=== PATIENT | male | born 1945 | race Caucasian/White ===

== ENCOUNTER 2018-06-16 14:53 | Inpatient (IN) ==
[2018-06-17] MEDS ORDERED: Artificial Tears SOLN 15 ML BOTTLE BOTH EYES PRN (14:23)
[2018-06-17] MEDS ORDERED: NON-FORMULARY MEDICATION 1 EACH EACH (Carboxymethylcellulose Sodium [Refresh Tears] 1 DROP BOTH EYES PRN (14:23)
[2018-06-17] MEDS ORDERED: Ondansetron 4 MG/2 ML VIAL IVP PRN (14:23)
[2018-06-17] MEDS ORDERED: Acetylcysteine 10% 2 ML INHSOL IH SCH (15:00)
[2018-06-17] MEDS: Gabapentin 300 MG CAPSULE PO SCH ×2 (16:02→17:33)
[2018-06-17] MEDS: Ipratropium/Albuterol Neb 3 ML IH SCH ×2 (16:07→23:03)
[2018-06-17] MEDS: Pirfenidone [Esbriet] 801 MG PO SCH ×2 (17:11→21:07)
[2018-06-17] MEDS: *HR* OxyCODONE/APAP 5/325 TABLET PO PRN (17:33)
[2018-06-17] MEDS: Methocarbamol 500 MG TABLET PO SCH (17:33)
[2018-06-17] MEDS: Gabapentin 400 MG CAPSULE PO SCH (20:25)
[2018-06-17] MEDS ORDERED: Sodium Chloride for inhalation 3 ML VIAL IH SCH (23:00)
[2018-06-18] MEDS: Methocarbamol 500 MG TABLET PO SCH ×3 (00:30→15:43)
[2018-06-18 06:40] LABS: Basophils % 0.4 %; Eosinophils # 0.4 K/mcL (0.0-0.6); Eosinophils % 3.9 %; Hematocrit 30.6 % (37.5-50.1); Hemoglobin 9.6 g/dL (12.9-16.9); Immature Granulocytes % 1.9 % (0-4); Lymphocytes % 10.9 %; Mean Corpuscular HGB Conc 31.4 g/dL (31.6-35.5); Mean Corpuscular Hemoglobin 29.9 pg (28.0-33.3); Mean Corpuscular Volume 95.3 fL (83.0-100.0); Mean Platelet Volume 8.4 fL (9.4-12.4); Monocytes # 1.4 K/mcL (0.0-1.3); Monocytes % 14.7 %; Neutrophils # 6.4 K/mcL (1.6-8.9); Platelet Count 474 K/mcL (140-400); Red Blood Count 3.21 M/mcL (4.19-5.50); Red Cell Distribution Width 18.1 % (11.5-14.5); Segmented Neutrophils % 68.2 %
[2018-06-18 06:58] LABS: Phosphorous 3.6 mg/dL (2.7-4.5)
[2018-06-18 07:02] LABS: BUN/Creatinine Ratio 15 (6-26); Blood Urea Nitrogen 9 mg/dL (8-23); Carbon Dioxide 28 mEq/L (23-29); Chloride 92 mEq/L (98-107); Glucose 97 mg/dL (70-105); Osmolality,Calculated 269 (280-300); Potassium 3.4 mEq/L (3.5-5.1); Sodium 130 mEq/L (136-145); eGFR For Non-African Americans > 60 (> 60)
[2018-06-18] MEDS: Ipratropium/Albuterol Neb 3 ML IH SCH ×3 (07:49→23:24)
[2018-06-18 08:46] LABS: Thyroid Stimulating Hormone 7.69 mcIU/mL (0.340-5.600)
[2018-06-18] MEDS: Venlafaxine XR (24 HR) 150 MG CAP.ER.24H PO SCH (09:32)
[2018-06-18] MEDS: Multivit/Ca/Min/Fe/FA 1 TAB TABLET PO SCH (09:32)
[2018-06-18] MEDS: Gabapentin 300 MG CAPSULE PO SCH ×2 (09:32→15:44)
[2018-06-18] MEDS: amLODIPine 5 MG TABLET PO SCH (09:32)
[2018-06-18] MEDS: Fluticasone Propionate Nasal 50 MCG/SPRAY BOTTLE NS SCH (09:40)
[2018-06-18] MEDS: Pirfenidone [Esbriet] 801 MG PO SCH ×3 (09:41→20:44)
[2018-06-18 10:11] LABS: Folate 15.4 ng/mL (3.0-16.0)
--- NOTE | 2018-06-18 17:04 | Internal Med History&Physical ---
Date of Encounter: 06/18/18 Time of Encounter: 15:55 Assessment and Plan (1) S/P right colectomy Current visit: No Status: Acute Continue wound VAC. Follow-up surgical appointment in approximately 2 weeks. (2) Idiopathic pulmonary fibrosis Current visit: No Status: Chronic Esbriet is being held until pulmonology follow-up. N-Acetylcysteine will be continued for treatment. (3) Hypothyroidism Current visit: Yes Status: Acute TSH elevated at 7.690 today. Synthroid will be started. Qualifiers: Hypothyroidism type: unspecified Qualified Code(s): E03.9 - Hypothyroidism, unspecified (4) Anemia Current visit: No Status: Acute Anemia testing is a showed iron 27, transferrin saturation 9%, transferrin 209, B12 1044, and folate 15.4. Iron sucrose will be given. Qualifiers: Anemia type: other cause Other causes of anemia: acute posthemorrhagic Qualified Code(s): D62 - Acute posthemorrhagic anemia (5) Hypokalemia Current visit: Yes Status: Acute Potassium decreased to 3.4 today. Supplemental potassium will be ordered. Internal Medicine - H&P: HPI Chief complaint: Abdominal surgery Admitted From: Hospital to Hospital Transfer Plans for Post Hospital Care: Home History of present illness: Mr. Degroot is a 73 year old male who was hospitalized at [facility] May 19-June 17 after presenting to [facility] ER with perforated cecum. He underwent exploratory laparotomy with right segmental colectomy and primary ileocolonic anastomosis 05/19/2018. He had CT-guided percutaneous drainage of 2 abdominal abscesses by IR on 05/26/2018. On 05/29/2018 he had EGD with exploratory laparotomy and abdominal washout for abnormal CT scan indicating possible abdominal abscess/anastomotic leak. On 06/06/2018 he had mesenteric angiography with embolization of GDA via inferior pancreaticoduodenal artery. He remained stable following this intervention. He was transferred to [facility] swing bed for ongoing care needs. He had open appendectomy remotely. Wound VAC remains in place as well as a right-sided abdominal drain. He denies previous disorders of liver gallbladder or exocrine pancreas. Past Med Surg Social Fam HX - Past Medical History Medical history: hyperlipidemia, hypertension, other Additional medical history: skull fracture from fall in 2013. Psychiatric history: no psych history - Past Surgical History Surgical History: appendectomy, cataract, tonsilectomy, other Additional surgical history: unknown - Social History Smoking Status: Former smoker Smokeless Tobacco Status: No Alcohol use: none Drug use: none Internal Medicine - H&P: Meds Amlodipine Besylate 10 mg PO DAILY 05/20/18 [History] Atorvastatin [Lipitor] 40 mg PO HS 05/20/18 [History] C,E,Zinc,Copper 11/Lnigy8w/Lut [Ocuvite Adult 50 Plus Softgel] 1 cap PO DAILY 05/20/18 [History] Carboxymethylcellulose Sodium [Refresh Tears] 1 drop BOTH EYES QID PRN 05/20/18 [History] Chlorthalidone 25 mg PO DAILY 05/20/18 [History] Fluticasone Propionate Nasal [Flonase] 2 spr NS DAILY 05/20/18 [History] Gabapentin [Neurontin] 1,200 mg PO HS 05/20/18 [History] Gabapentin [Neurontin] 600 mg PO BID 05/20/18 [History] Montelukast [Singulair] 10 mg PO HS 05/20/18 [History] Pirfenidone [Esbriet] 2,403 mg PO TID 05/20/18 [History] Venlafaxine XR (24 HR) [Effexor XR] 150 mg PO DAILY 05/20/18 [History] Acetylcysteine 10% 2 ml IH [id number] inhsol 06/16/18 [Rx] Artificial Tears SOLN [Akwa Tears] 1 drop BOTH EYES QID PRN bottle 06/16/18 [Rx] Docusate [Colace] 100 mg PO BID capsule 06/16/18 [Rx] Heparin 5,000 unit SQ Q12HCO vial 06/16/18 [Rx] Ipratropium/Albuterol Neb [Duoneb] 3 ml IH [id number] inhsol 06/16/18 [Rx] Methocarbamol [Robaxin] 750 mg PO Q8HR tablet 06/16/18 [Rx] Omeprazole [PriLOSEC] 40 mg PO BIDAC capsule. 06/16/18 [Rx] Ondansetron [Zofran] 4 mg IVP Q6HR PRN vial 06/16/18 [Rx] OxyCODONE/APAP 5/325 [Percocet 5/325 MG] 1 each PO Q6HR PRN 7 Days tablet 06/16/18 [Rx] Potassium Chloride 20 meq PO BID tab.er.prt 06/16/18 [Rx] Sucralfate [Carafate] 1 gm PO QIDAC udc 06/16/18 [Rx] Allergy/AdvReac Type Severity Reaction Status Date / Time lansoprazole [From Prevacid] AdvReac Diarrhea Verified 05/20/18 16:56 All Systems PM: A 10-system review of systems was performed and is negative for pertinent findings except as documented above in the HPI. Review of systems: Gen.: He states his weight has been stable for several years Cardiovascular: He has history of hypertension but no known TX heart failure angina DVT or pulmonary embolus. Regadenoson EST 04/29/2016 showed no EKG or perfusion evidence of ischemia. Echocardiogram 04/29/2016 showed LVEF of 60%. The interventricular septum and posterior wall thickness measurements were 0.70 and 1.00 cm respectively. The E/A ratio was 1. No significant valvular abnormalities were seen. No evidence of pulmonary hypertension was reported without estimated RVSP recorded. Respiratory: He smoked from age [age] up to 2 packs per day. PFTs 08/20/2017 showed FVC 81% predicted, FEV1 87% predicted, FEV1/FVC 79%, MVV 46% predicted, RV 149% predicted, and DLCO (uncorrected) 62% predicted. There was minimal change in FVC and FEV1 postbronchodilator. Flow volume loop was normal. He was given a diagnosis of idiopathic pulmonary fibrosis in 2014. GI: As per history of present illness : He denies hematuria dysuria or kidney stones Neurologic: He denies large discussion strokes or seizures. Endocrine: He has hyperlipidemia but denies diabetes or thyroid disease Hematology/oncology: He denies blood disorders or internal malignancies. He r eceived 13 units of packed red cells, 2 units of plasma, and Venofer total 1.8 g during his recent [facility] stay. Psychiatric: He has anxiety and depression. [place] skeletal: He had a fall on ice May 2012 resulting in a closed skull fracture. He was treated nonoperatively without sequelae. He has degenerative disc disease in his low back with chronic leg pain. He denies gout or other bone joint or muscle disorders. - Constitutional Vitals: Temp Pulse Resp BP Pulse Ox 98.4 F 86 14 135/77 95 06/18/18 07:06 06/18/18 07:06 06/18/18 07:49 06/18/18 07:06 06/18/18 10:11 Exam: Gen.: He is a well-developed well-nourished male resting comfortably in bed who appears in no acute distress HEENT: Head is atraumatic and normocephalic. Eyes: EOMI. There is no scleral icterus. Mouth: Mucosa is moist. Neck: Supple and nontender. There is no thyromegaly or adenopathy noted. Heart: Regular with bigeminal rhythm. No murmurs or gallops are heard. Lungs: No wheezes or crackles are heard. Abdomen: A wound VAC with black foam is in place in the midline abdominal area. A drainage tube with bulb suction is in place in the right abdominal area. No masses or guarding are noted. Extremities: There is no cyanosis edema or clubbing noted. Dorsalis pedis and posterior tibial pulses are 1-2 over 2 bilaterally. Neurologic: Mental status: He is talkative and a good historian. Cranial nerves: Smile is symmetric. Forehead wrinkles bilaterally. Tongue protrudes midline. EOMI. Motor: There is no pronator drift. Cerebellar: Finger to nose is intact bilaterally. Skin: Warm and dry Internal Med - H&P Results - Labs CBC & Chem 7: 06/18/18 06:08 06/18/18 06:08 Labs: Short CBC 06/18/18 Range/Units 06:08 WBC 9.4 (4.3-11.1) K/mcL Hgb 9.6 L (12.9-16.9) g/dL Hct 30.6 L (37.5-50.1) % Plt Count 474 H (140-400) K/mcL Neutrophils # 6.4 (1.6-8.9) K/mcL BMP 06/18/18 06:08 Sodium 130 L Potassium 3.4 L Chloride 92 L Carbon Dioxide 28 BUN 9 Creatinine 0.59 L Glucose 97 Calcium 9.0
[2018-06-18] MEDS ORDERED: Iron Sucrose Complex 400 MG in 0.9 % Sodium Chloride 250 ML IVPB ONE (17:28)
[2018-06-18] MEDS: Methyl Salicylate/Menthol 28 GM TUBE TP SCH (18:03)
[2018-06-18] MEDS: Gabapentin 400 MG CAPSULE PO SCH (20:44)
[2018-06-19] MEDS: Methocarbamol 500 MG TABLET PO SCH ×4 (00:03→23:20)
[2018-06-19] MEDS: Ipratropium/Albuterol Neb 3 ML IH SCH ×3 (07:52→23:38)
[2018-06-19] MEDS: Methyl Salicylate/Menthol 28 GM TUBE TP SCH (08:08)
[2018-06-19] MEDS: Fluticasone Propionate Nasal 50 MCG/SPRAY BOTTLE NS SCH (08:09)
[2018-06-19] MEDS: Pirfenidone [Esbriet] 801 MG PO SCH ×3 (08:10→20:30)
[2018-06-19] MEDS: Gabapentin 300 MG CAPSULE PO SCH ×2 (08:10→15:41)
[2018-06-19] MEDS: Multivit/Ca/Min/Fe/FA 1 TAB TABLET PO SCH (08:10)
[2018-06-19] MEDS: amLODIPine 5 MG TABLET PO SCH (08:10)
[2018-06-19] MEDS ORDERED: Acetylcysteine 10% 2 ML INHSOL IH SCH (10:00)
[2018-06-19] MEDS: Venlafaxine XR (24 HR) 150 MG CAP.ER.24H PO SCH (11:05)
--- NOTE | 2018-06-19 15:55 | Internal Med Progress Note ---
Date of Encounter: 06/19/18 Time of Encounter: 15:48 - Assessment and plan (1) S/P right colectomy Current Visit: No Status: Acute Assessment and plan: June 19. Continue wound VAC and surgical follow-up as scheduled (2) Idiopathic pulmonary fibrosis Current Visit: No Status: Chronic Assessment and plan: June 19. Esbriet is being held until pulmonology follow-up. N-Acetylcysteine will be continued for treatment. (3) Hypothyroidism Current Visit: Yes Status: Acute Assessment and plan: June 19. Continue Synthroid Qualifiers: Hypothyroidism type: unspecified Qualified Code(s): E03.9 - Hypothyroidism, unspecified (4) Anemia Current Visit: No Status: Acute Assessment and plan: June 19. Iron sucrose was given yesterday. Monitor CBC. Qualifiers: Anemia type: other cause Other causes of anemia: acute posthemorrhagic Qualified Code(s): D62 - Acute posthemorrhagic anemia (5) Hypokalemia Current Visit: Yes Status: Acute Assessment and plan: June 19. Recheck labs in a.m. - Subjective Interval history: June 19. He has no new complaints. - Constitutional Vitals: Temp Pulse Resp BP Pulse Ox 98.3 F 86 16 127/68 96 06/19/18 06:17 06/19/18 06:17 06/19/18 07:52 06/19/18 06:17 06/19/18 07:52 Exam: He is resting comfortably in bed and appears in no acute distress. His affect is bright and cheerful. I reviewed his medications and lab results. Internal Medicine: Result - Labs CBC & Chem 7: 06/18/18 06:08 06/18/18 06:08 Consult Discharge Plan - Plan Referrals: Yesenia Millan MD [Primary Care Provider] - 1 week
[2018-06-19] MEDS: Acetylcysteine 10% 2 ML INHSOL IH SCH (16:14)
[2018-06-19] MEDS: Sodium Chloride for inhalation 3 ML VIAL IH SCH ×2 (16:17→23:50)
[2018-06-19] MEDS: Gabapentin 400 MG CAPSULE PO SCH (20:29)
[2018-06-20 07:11] LABS: Basophils % 0.4 %; Eosinophils # 0.4 K/mcL (0.0-0.6); Eosinophils % 3.9 %; Hematocrit 27.2 % (37.5-50.1); Hemoglobin 8.7 g/dL (12.9-16.9); Immature Granulocytes % 0.8 % (0-4); Lymphocytes # 1.2 K/mcL (0.6-4.6); Lymphocytes % 12.8 %; Mean Corpuscular Hemoglobin 29.7 pg (28.0-33.3); Mean Corpuscular Volume 92.8 fL (83.0-100.0); Mean Platelet Volume 8.5 fL (9.4-12.4); Monocytes # 1.4 K/mcL (0.0-1.3); Monocytes % 16.1 %; Neutrophils # 5.9 K/mcL (1.6-8.9); Platelet Count 415 K/mcL (140-400); Red Blood Count 2.93 M/mcL (4.19-5.50); Red Cell Distribution Width 17.1 % (11.5-14.5)
[2018-06-20 07:27] LABS: BUN/Creatinine Ratio 13 (6-26); Blood Urea Nitrogen 8 mg/dL (8-23); Calcium 8.6 mg/dL (8.6-10.3); Carbon Dioxide 30 mEq/L (23-29); Chloride 93 mEq/L (98-107); Glucose 94 mg/dL (70-105); Osmolality,Calculated 274 (280-300); Potassium 3.1 mEq/L (3.5-5.1); Sodium 133 mEq/L (136-145); eGFR For Non-African Americans > 60 (> 60)
[2018-06-20] MEDS: Methocarbamol 500 MG TABLET PO SCH ×2 (08:26→15:53)
[2018-06-20] MEDS: Venlafaxine XR (24 HR) 150 MG CAP.ER.24H PO SCH (08:26)
[2018-06-20] MEDS: amLODIPine 5 MG TABLET PO SCH (08:27)
[2018-06-20] MEDS: Gabapentin 300 MG CAPSULE PO SCH ×2 (08:27→15:53)
[2018-06-20] MEDS: Fluticasone Propionate Nasal 50 MCG/SPRAY BOTTLE NS SCH (08:27)
[2018-06-20] MEDS: Multivit/Ca/Min/Fe/FA 1 TAB TABLET PO SCH (08:27)
[2018-06-20] MEDS: Methyl Salicylate/Menthol 28 GM TUBE TP SCH (08:28)
[2018-06-20] MEDS: Pirfenidone [Esbriet] 801 MG PO SCH ×3 (08:29→17:16)
[2018-06-20] MEDS: Acetylcysteine 10% 2 ML INHSOL IH SCH ×5 (09:16→22:39)
[2018-06-20] MEDS: Ipratropium/Albuterol Neb 3 ML IH SCH ×3 (09:16→22:39)
[2018-06-20] MEDS: Sodium Chloride for inhalation 3 ML VIAL IH SCH (09:16)
[2018-06-20] MEDS: Gabapentin 400 MG CAPSULE PO SCH (21:19)
[2018-06-21] MEDS: Methocarbamol 500 MG TABLET PO SCH ×3 (00:31→16:15)
[2018-06-21 06:54] LABS: Basophils % 0.4 %; Eosinophils # 0.2 K/mcL (0.0-0.6); Eosinophils % 2.3 %; Hematocrit 27.2 % (37.5-50.1); Hemoglobin 8.6 g/dL (12.9-16.9); Immature Granulocytes % 0.8 % (0-4); Lymphocytes # 1.1 K/mcL (0.6-4.6); Lymphocytes % 12.1 %; Mean Corpuscular HGB Conc 31.6 g/dL (31.6-35.5); Mean Corpuscular Hemoglobin 29.6 pg (28.0-33.3); Mean Corpuscular Volume 93.5 fL (83.0-100.0); Mean Platelet Volume 8.4 fL (9.4-12.4); Monocytes # 1.3 K/mcL (0.0-1.3); Monocytes % 14.4 %; Neutrophils # 6.3 K/mcL (1.6-8.9); Platelet Count 404 K/mcL (140-400); Red Blood Count 2.91 M/mcL (4.19-5.50); Red Cell Distribution Width 17.1 % (11.5-14.5)
[2018-06-21 07:19] LABS: BUN/Creatinine Ratio 15 (6-26); Blood Urea Nitrogen 8 mg/dL (8-23); Calcium 8.5 mg/dL (8.6-10.3); Carbon Dioxide 28 mEq/L (23-29); Chloride 95 mEq/L (98-107); Glucose 100 mg/dL (70-105); Magnesium 1.8 mg/dL (1.6-2.6); Osmolality,Calculated 272 (280-300); Potassium 3.4 mEq/L (3.5-5.1); Sodium 132 mEq/L (136-145); eGFR For Non-African Americans > 60 (> 60)
[2018-06-21] MEDS: Ipratropium/Albuterol Neb 3 ML IH SCH ×3 (08:38→22:54)
[2018-06-21] MEDS: Pirfenidone [Esbriet] 801 MG PO SCH ×3 (08:38→17:17)
[2018-06-21] MEDS: Venlafaxine XR (24 HR) 150 MG CAP.ER.24H PO SCH (08:39)
[2018-06-21] MEDS: Multivit/Ca/Min/Fe/FA 1 TAB TABLET PO SCH (08:39)
[2018-06-21] MEDS: amLODIPine 5 MG TABLET PO SCH (08:39)
[2018-06-21] MEDS: Gabapentin 300 MG CAPSULE PO SCH ×2 (08:39→16:15)
[2018-06-21] MEDS: Methyl Salicylate/Menthol 28 GM TUBE TP SCH (08:40)
[2018-06-21] MEDS: Fluticasone Propionate Nasal 50 MCG/SPRAY BOTTLE NS SCH (08:40)
[2018-06-21] MEDS: Acetylcysteine 10% 2 ML INHSOL IH SCH ×3 (08:41→22:54)
[2018-06-21] MEDS: Gabapentin 400 MG CAPSULE PO SCH (20:51)
[2018-06-22] MEDS: Methocarbamol 500 MG TABLET PO SCH ×4 (00:56→22:59)
[2018-06-22] MEDS: Acetylcysteine 10% 2 ML INHSOL IH SCH (07:48)
[2018-06-22] MEDS: Ipratropium/Albuterol Neb 3 ML IH SCH ×3 (07:48→22:25)
[2018-06-22] MEDS: amLODIPine 5 MG TABLET PO SCH (08:31)
[2018-06-22] MEDS: Multivit/Ca/Min/Fe/FA 1 TAB TABLET PO SCH (08:31)
[2018-06-22] MEDS: Gabapentin 300 MG CAPSULE PO SCH ×2 (08:31→15:57)
[2018-06-22] MEDS: Venlafaxine XR (24 HR) 150 MG CAP.ER.24H PO SCH (08:31)
[2018-06-22] MEDS: Pirfenidone [Esbriet] 801 MG PO SCH ×3 (08:32→16:56)
[2018-06-22] MEDS: Fluticasone Propionate Nasal 50 MCG/SPRAY BOTTLE NS SCH (08:32)
[2018-06-22] MEDS: Methyl Salicylate/Menthol 28 GM TUBE TP SCH (08:36)
[2018-06-22] MEDS: Acetylcysteine 10% 10 ML VIAL IH SCH ×2 (16:13→22:25)
--- NOTE | 2018-06-22 18:04 | Internal Med Progress Note ---
Date of Encounter: 06/22/18 Time of Encounter: 17:55 - Assessment and plan (1) S/P right colectomy Current Visit: No Status: Acute Assessment and plan: June 19. Continue wound VAC and surgical follow-up as scheduled (2) Idiopathic pulmonary fibrosis Current Visit: No Status: Chronic Assessment and plan: June 19. Esbriet is being held until pulmonology follow-up. N-Acetylcysteine will be continued for treatment. (3) Hypothyroidism Current Visit: Yes Status: Acute Assessment and plan: June 19. Continue Synthroid Qualifiers: Hypothyroidism type: unspecified Qualified Code(s): E03.9 - Hypothyroidism, unspecified (4) Anemia Current Visit: No Status: Acute Assessment and plan: June 19. Iron sucrose was given yesterday. Monitor CBC. Qualifiers: Anemia type: other cause Other causes of anemia: acute posthemorrhagic Qualified Code(s): D62 - Acute posthemorrhagic anemia (5) Hypokalemia Current Visit: Yes Status: Acute Assessment and plan: June 19. Recheck labs in a.m. June 22. Recheck labs in a.m. - Subjective Interval history: June 19. He has no new complaints. June 22. He has no new complaints. He states he wants to go home as soon as possible. - Constitutional Vitals: Temp Pulse Resp BP Pulse Ox 98.0 F 73 12 127/69 96 06/22/18 08:16 06/22/18 08:16 06/22/18 16:13 06/22/18 08:16 06/22/18 16:13 Exam: He is resting comfortably in bed and appears in no acute distress. His affect is bright and cheerful. I observed the nurse changing the dressing on his abdominal wound. I reviewed his medications and lab results. Internal Medicine: Result - Labs CBC & Chem 7: 06/21/18 05:55 06/21/18 05:55 Consult Discharge Plan - Plan Referrals: Yesenia Millan MD [Primary Care Provider] - 1 week
[2018-06-22] MEDS: Gabapentin 400 MG CAPSULE PO SCH (21:31)
[2018-06-23 05:34] LABS: Basophils % 0.5 %; Eosinophils # 0.3 K/mcL (0.0-0.6); Eosinophils % 3.2 %; Hematocrit 27.5 % (37.5-50.1); Hemoglobin 8.7 g/dL (12.9-16.9); Immature Granulocytes % 0.6 % (0-4); Lymphocytes % 13.4 %; Mean Corpuscular HGB Conc 31.6 g/dL (31.6-35.5); Mean Corpuscular Hemoglobin 29.8 pg (28.0-33.3); Mean Corpuscular Volume 94.2 fL (83.0-100.0); Mean Platelet Volume 8.4 fL (9.4-12.4); Monocytes # 1.2 K/mcL (0.0-1.3); Monocytes % 15.1 %; Neutrophils # 5.2 K/mcL (1.6-8.9); Platelet Count 355 K/mcL (140-400); Red Blood Count 2.92 M/mcL (4.19-5.50); Red Cell Distribution Width 16.7 % (11.5-14.5); Segmented Neutrophils % 67.2 %
[2018-06-23 05:57] LABS: BUN/Creatinine Ratio 16 (6-26); Blood Urea Nitrogen 8 mg/dL (8-23); Calcium 8.6 mg/dL (8.6-10.3); Carbon Dioxide 28 mEq/L (23-29); Chloride 96 mEq/L (98-107); Glucose 96 mg/dL (70-105); Osmolality,Calculated 270 (280-300); Potassium 3.5 mEq/L (3.5-5.1); Sodium 131 mEq/L (136-145); eGFR For Non-African Americans > 60 (> 60)
[2018-06-23] MEDS: Multivit/Ca/Min/Fe/FA 1 TAB TABLET PO SCH (08:17)
[2018-06-23] MEDS: Venlafaxine XR (24 HR) 150 MG CAP.ER.24H PO SCH (08:17)
[2018-06-23] MEDS: amLODIPine 5 MG TABLET PO SCH (08:18)
[2018-06-23] MEDS: Methocarbamol 500 MG TABLET PO SCH ×2 (08:18→15:58)
[2018-06-23] MEDS: Gabapentin 300 MG CAPSULE PO SCH ×2 (08:18→15:58)
[2018-06-23] MEDS: Methyl Salicylate/Menthol 28 GM TUBE TP SCH (08:18)
[2018-06-23] MEDS: Pirfenidone [Esbriet] 801 MG PO SCH ×4 (08:19→17:17)
[2018-06-23] MEDS: Fluticasone Propionate Nasal 50 MCG/SPRAY BOTTLE NS SCH (08:19)
[2018-06-23] MEDS: Ipratropium/Albuterol Neb 3 ML IH SCH ×3 (08:46→23:20)
[2018-06-23] MEDS: Acetylcysteine 10% 10 ML VIAL IH SCH ×3 (08:47→23:20)
[2018-06-23] MEDS: *HR* OxyCODONE/APAP 5/325 TABLET PO PRN (21:28)
[2018-06-23] MEDS: Gabapentin 400 MG CAPSULE PO SCH (21:28)
[2018-06-24] MEDS: Methocarbamol 500 MG TABLET PO SCH ×4 (00:24→23:46)
[2018-06-24] MEDS: Ipratropium/Albuterol Neb 3 ML IH SCH ×3 (07:38→21:57)
[2018-06-24] MEDS: Acetylcysteine 10% 10 ML VIAL IH SCH ×3 (07:38→21:57)
[2018-06-24] MEDS: Multivit/Ca/Min/Fe/FA 1 TAB TABLET PO SCH (07:46)
[2018-06-24] MEDS: Gabapentin 300 MG CAPSULE PO SCH ×2 (07:46→17:50)
[2018-06-24] MEDS: Venlafaxine XR (24 HR) 150 MG CAP.ER.24H PO SCH (07:46)
[2018-06-24] MEDS: amLODIPine 5 MG TABLET PO SCH (07:46)
[2018-06-24] MEDS: Fluticasone Propionate Nasal 50 MCG/SPRAY BOTTLE NS SCH (07:47)
[2018-06-24] MEDS: Pirfenidone [Esbriet] 801 MG PO SCH ×3 (07:47→17:50)
[2018-06-24] MEDS: Methyl Salicylate/Menthol 28 GM TUBE TP SCH (07:47)
[2018-06-24] MEDS: Gabapentin 400 MG CAPSULE PO SCH (21:31)
[2018-06-24] MEDS: *HR* OxyCODONE/APAP 5/325 TABLET PO PRN (21:34)
[2018-06-24] MEDS ORDERED: Methocarbamol 500 MG TABLET PO ONE (23:45)
[2018-06-25 06:42] LABS: Basophils # 0.1 K/mcL (0.0-0.2); Basophils % 0.8 %; Eosinophils # 0.3 K/mcL (0.0-0.6); Eosinophils % 4.8 %; Hematocrit 29.2 % (37.5-50.1); Hemoglobin 9.1 g/dL (12.9-16.9); Immature Granulocytes % 0.6 % (0-4); Lymphocytes # 1.1 K/mcL (0.6-4.6); Lymphocytes % 17.6 %; Mean Corpuscular HGB Conc 31.2 g/dL (31.6-35.5); Mean Corpuscular Hemoglobin 29.9 pg (28.0-33.3); Mean Corpuscular Volume 96.1 fL (83.0-100.0); Mean Platelet Volume 8.5 fL (9.4-12.4); Monocytes % 15.4 %; Neutrophils # 3.8 K/mcL (1.6-8.9); Platelet Count 363 K/mcL (140-400); Red Blood Count 3.04 M/mcL (4.19-5.50); Red Cell Distribution Width 16.5 % (11.5-14.5); Segmented Neutrophils % 60.8 %
[2018-06-25 07:04] LABS: BUN/Creatinine Ratio 13 (6-26); Blood Urea Nitrogen 7 mg/dL (8-23); Calcium 8.7 mg/dL (8.6-10.3); Carbon Dioxide 30 mEq/L (23-29); Chloride 97 mEq/L (98-107); Glucose 93 mg/dL (70-105); Osmolality,Calculated 278 (280-300); Potassium 3.9 mEq/L (3.5-5.1); Sodium 135 mEq/L (136-145); eGFR For Non-African Americans > 60 (> 60)
[2018-06-25 07:10] VITALS: BP 146/56
[2018-06-25] MEDS: Acetylcysteine 10% 10 ML VIAL IH SCH ×2 (07:34→14:24)
[2018-06-25] MEDS: Ipratropium/Albuterol Neb 3 ML IH SCH ×2 (07:34→14:23)
[2018-06-25] MEDS: Methocarbamol 500 MG TABLET PO SCH (08:38)
[2018-06-25] MEDS: amLODIPine 5 MG TABLET PO SCH (08:40)
[2018-06-25] MEDS: Fluticasone Propionate Nasal 50 MCG/SPRAY BOTTLE NS SCH (08:43)
[2018-06-25] MEDS: Venlafaxine XR (24 HR) 150 MG CAP.ER.24H PO SCH (08:44)
[2018-06-25] MEDS: Gabapentin 300 MG CAPSULE PO SCH ×2 (08:44→15:47)
[2018-06-25] MEDS: Multivit/Ca/Min/Fe/FA 1 TAB TABLET PO SCH (08:45)
[2018-06-25] MEDS: Pirfenidone [Esbriet] 801 MG PO SCH ×2 (08:48→11:51)
[2018-06-25] MEDS: Methyl Salicylate/Menthol 28 GM TUBE TP SCH (08:54)
--- NOTE | 2018-06-25 15:59 | Discharge Summary ---
Date of Encounter: 06/25/18 Time of Encounter: 15:52 - Discharge Diagnosis (1) S/P right colectomy Priority: Primary Status: Acute (2) Idiopathic pulmonary fibrosis Priority: Secondary Status: Chronic (3) Hypothyroidism Priority: Secondary Status: Acute Qualifiers: Hypothyroidism type: unspecified Qualified Code(s): E03.9 - Hypothyroidism, unspecified (4) Anemia Priority: Secondary Status: Acute Qualifiers: Anemia type: other cause Other causes of anemia: acute posthemorrhagic Qualified Code(s): D62 - Acute posthemorrhagic anemia (5) Hypokalemia Priority: Secondary Status: Resolved Hospital course: Mr. Degroot is a 73 year old male who was hospitalized at [facility] May 19-June 17 after presenting to [facility] ER with perforated cecum. He underwent exploratory laparotomy with right segmental colectomy and primary ileocolonic anastomosis 05/19/2018. He had CT-guided percutaneous drainage of 2 abdominal abscesses by IR on 05/26/2018. On 05/29/2018 he had EGD with exploratory laparotomy and abd ominal washout for abnormal CT scan indicating possible abdominal abscess/anastomotic leak. On 06/06/2018 he had mesenteric angiography with embolization of GDA via inferior pancreaticoduodenal artery. He remained stable following this intervention. He was transferred to [facility] swing bed for ongoing care needs. Initial orders were written by the discharging physicians at [facility]. I saw him on June 18 and performed a swing bed history and physical. Wound VAC was continued without complications. He will follow with Dr. Daily as directed. TSH returned elevated at 7.690. Synthroid was started will be continued at discharge. Anemia testing showed iron 27, transferrin saturation 9%, transferrin 209, B12 1044, and folate 15.4. Iron sucrose was given tolerated well. Ago but had improved to 9.1 by day of discharge. His PCP can monitor iron status/anemia. Zinc level returned satisfactory at 111. On 06/25/2018 arrangements were complete for him to be discharged home. He will have home wound VAC continued. - Time Spent with Patient Total time spent providing and/or coordinating discharge services: - Discharge Medications Prescriptions: New Levothyroxine [Synthroid] 100 mcg PO DAILY@0630 #30 tablet Continue Amlodipine Besylate 10 mg PO DAILY Atorvastatin [Lipitor] 40 mg PO HS C,E,Zinc,Copper 11/Lxsae0b/Lut [Ocuvite Adult 50 Plus Softgel] 1 cap PO DAILY Carboxymethylcellulose Sodium [Refresh Tears] 1 drop BOTH EYES QID PRN PRN Reason: Dry Eye(S) Fluticasone Propionate Nasal [Flonase] 2 spr NS DAILY Gabapentin [Neurontin] 600 mg PO BID Gabapentin [Neurontin] 1,200 mg PO HS Montelukast [Singulair] 10 mg PO HS Pirfenidone [Esbriet] 2,403 mg PO TID Venlafaxine XR (24 HR) [Effexor XR] 150 mg PO DAILY Ondansetron [Zofran] 4 mg IVP Q6HR PRN vial PRN Reason: Nausea Acetylcysteine 10% 2 ml IH [id number] inhsol Ipratropium/Albuterol Neb [Duoneb] 3 ml IH [id number] inhsol Methocarbamol [Robaxin] 750 mg PO Q8HR tablet Heparin 5,000 unit SQ Q12HCO vial Artificial Tears SOLN [Akwa Tears] 1 drop BOTH EYES QID PRN bottle PRN Reason: Dry Eyes Docusate [Colace] 100 mg PO BID capsule Omeprazole [PriLOSEC] 40 mg PO BIDAC capsule. Sucralfate [Carafate] 1 gm PO QIDAC udc Discontinued Chlorthalidone 25 mg PO DAILY Potassium Chloride 20 meq PO BID tab.er.prt Home Medications: Amlodipine Besylate 10 mg PO DAILY 05/20/18 [History] Atorvastatin [Lipitor] 40 mg PO HS 05/20/18 [History] C,E,Zinc,Copper 11/Enudr3r/Lut [Ocuvite Adult 50 Plus Softgel] 1 cap PO DAILY 05/20/18 [History] Carboxymethylcellulose Sodium [Refresh Tears] 1 drop BOTH EYES QID PRN 05/20/18 [History] Fluticasone Propionate Nasal [Flonase] 2 spr NS DAILY 05/20/18 [History] Gabapentin [Neurontin] 1,200 mg PO HS 05/20/18 [History] Gabapentin [Neurontin] 600 mg PO BID 05/20/18 [History] Montelukast [Singulair] 10 mg PO HS 05/20/18 [History] Pirfenidone [Esbriet] 2,403 mg PO TID 05/20/18 [History] Venlafaxine XR (24 HR) [Effexor XR] 150 mg PO DAILY 05/20/18 [History] Acetylcysteine 10% 2 ml IH [id number] inhsol 06/16/18 [Rx] Artificial Tears SOLN [Akwa Tears] 1 drop BOTH EYES QID PRN bottle 06/16/18 [Rx] Docusate [Colace] 100 mg PO BID capsule 06/16/18 [Rx] Heparin 5,000 unit SQ Q12HCO vial 06/16/18 [Rx] Ipratropium/Albuterol Neb [Duoneb] 3 ml IH [id number] inhsol 06/16/18 [Rx] Methocarbamol [Robaxin] 750 mg PO Q8HR tablet 06/16/18 [Rx] Omeprazole [PriLOSEC] 40 mg PO BIDAC capsule. 06/16/18 [Rx] Ondansetron [Zofran] 4 mg IVP Q6HR PRN vial 06/16/18 [Rx] Sucralfate [Carafate] 1 gm PO QIDAC udc 06/16/18 [Rx] Levothyroxine [Synthroid] 100 mcg PO DAILY@0630 #30 tablet 06/25/18 [Rx] Allergies/Adverse Reactions: Allergy/AdvReac Type Severity Reaction Status Date / Time lansoprazole [From Prevacid] AdvReac Diarrhea Verified 05/20/18 16:56 Date of admission: 06/17/18 15:09 Primary care physician: Yesenia Millan MD Consults: 06/17/18 14:14 Consult to Physical Therapy [CONS] Routine Comment: Evaluate, develop and implement POC Reason for Consult: weakness Does patient have active BEDREST order?: No Is patient medically & hemodynamically stable?: Yes Patient assessed for mobility or mobilized this visit?: Yes OT [Consult to Occupational Therapy] [CONS] Routine Comment: Evaluate, develop and implement POC Reason for Consult: weakaness Does patient have active BEDREST order?: No Is patient medically & hemodynamically stable?: Yes Patient assessed for mobility or mobilized this visit?: Yes - Constitutional Vitals: Temp Pulse Resp BP Pulse Ox 97.9 F 87 18 146/56 95 06/25/18 07:08 06/25/18 07:08 06/25/18 14:24 06/25/18 07:08 06/25/18 14:24 - Patient Status Disposition: Home Health Service - Discharge Instructions Follow Up With: Yesenia Millan MD [Primary Care Provider] - 07/06/18 11:45 am - Diet and Activity Activity: as per physical therapy Diet: advance to your usual diet
--- NOTE | 2018-06-25 16:29 | Physician Discharge Referral ---
Home Health/Hosp Referral Info Transfer to: Home Health Attending Provider: Ron Provider in Charge Post Discharge: PCP (Yesenia Millan M.D.) - Diagnosis (1) S/P right colectomy Priority: Primary Status: Acute (2) Idiopathic pulmonary fibrosis Priority: Secondary Status: Chronic (3) Hypothyroidism Priority: Secondary Status: Chronic (4) Anemia Priority: Secondary Status: Acute (5) Hypokalemia Priority: Secondary Status: Resolved - Respiratory Orders Smoking Cessation: Smoking cessation has been advised. For more information, call the [place] Tobacco Quit Line at 6-534-NBZL-NOW. - Diet/Nutrition Diet/Nutrition Orders: Regular - Activity Activity Orders: Ambulate - Services Needed Following services are medically necessary services: Nursing, Home Health Aide, Physical Therapy, Occupational Therapy - Transfer Medications Prescriptions: Levothyroxine [Synthroid] 100 mcg PO DAILY@0630 #30 tablet Home Medications: Amlodipine Besylate 10 mg PO DAILY 05/20/18 [History] Atorvastatin [Lipitor] 40 mg PO HS 05/20/18 [History] C,E,Zinc,Copper 11/Bjqxe3p/Lut [Ocuvite Adult 50 Plus Softgel] 1 cap PO DAILY 05/20/18 [History] Carboxymethylcellulose Sodium [Refresh Tears] 1 drop BOTH EYES QID PRN 05/20/18 [History] Fluticasone Propionate Nasal [Flonase] 2 spr NS DAILY 05/20/18 [History] Gabapentin [Neurontin] 1,200 mg PO HS 05/20/18 [History] Gabapentin [Neurontin] 600 mg PO BID 05/20/18 [History] Montelukast [Singulair] 10 mg PO HS 05/20/18 [History] Pirfenidone [Esbriet] 2,403 mg PO TID 05/20/18 [History] Venlafaxine XR (24 HR) [Effexor XR] 150 mg PO DAILY 05/20/18 [History] Acetylcysteine 10% 2 ml IH [id number] inhsol 06/16/18 [Rx] Artificial Tears SOLN [Akwa Tears] 1 drop BOTH EYES QID PRN bottle 06/16/18 [Rx] Docusate [Colace] 100 mg PO BID capsule 06/16/18 [Rx] Heparin 5,000 unit SQ Q12HCO vial 06/16/18 [Rx] Ipratropium/Albuterol Neb [Duoneb] 3 ml IH [id number] inhsol 06/16/18 [Rx] Methocarbamol [Robaxin] 750 mg PO Q8HR tablet 06/16/18 [Rx] Omeprazole [PriLOSEC] 40 mg PO BIDAC capsule. 06/16/18 [Rx] Ondansetron [Zofran] 4 mg IVP Q6HR PRN vial 06/16/18 [Rx] Sucralfate [Carafate] 1 gm PO QIDAC udc 06/16/18 [Rx] Levothyroxine [Synthroid] 100 mcg PO DAILY@0630 #30 tablet 06/25/18 [Rx] Allergies/Adverse Reactions: Allergy/AdvReac Type Severity Reaction Status Date / Time lansoprazole [From Prevacid] AdvReac Diarrhea Verified 05/20/18 16:56 Certification: Further, I certify that my clinical findings support that this patient is homebound (i.e. absences from home require considerable and taxing effort and are for medical reasons or zoroastrian services or infrequently or short duration when for other reasons) because: Homebound Reason: Leaving home requires considerable and taxing effort due to condition (Wound VAC use) Attestation: My signature below is to certify that this patient is under my care and that I, or nurse practitioner, or a physician's life enrichment assistant working with me, has a [id number] encounter with this patient.
== END 2018-06-25 16:55 | disposition home health service (06) | DRG 949 ==
LOC: INPPIK 06-17 15:09
PROVIDERS: ADMIT Internal Medicine; ATTEND Internal Medicine